=== PATIENT | female | born 1990 | race African-American/Black ===

== ENCOUNTER 2023-10-15 08:02 | Emergency (ER) | payer OTHER ==
[~2023-10-15] VITALS: Ht 167.6 cm; Wt 75.0 kg
[2023-10-15 08:12] VITALS: O2SAT 96
[2023-10-15 10:01] LABS: CLARITY URINE CLOUDY (CLEAR); COLOR URINE YELLOW (YELLOW); GLUCOSE URINE NEGATIVE (NEGATIVE); KETONES URINE 3+ (NEGATIVE); LEUKOCYTE ESTERASE URINE NEGATIVE (NEGATIVE); NITRITE URINE NEGATIVE (NEGATIVE); OCCULT BLOOD URINE NEGATIVE (NEGATIVE); PROTEIN URINE TRACE (NEGATIVE); SPECIFIC GRAVITY URINE 1.025 (1.005-1.030)
[2023-10-15 10:23] LABS: BACTERIA URINE 1+; SQUAMOUS EPITHELIAL CELL URINE 2+ /lpf (RARE/1+); YEAST URINE NONE SEEN
[2023-10-15] MEDS ORDERED: ACETAMINOPHEN 325MG TABLET PO ONE (11:15)
[2023-10-15 12:03] VITALS: BP 121/74; PULSE 98; RESP 18; TEMP 98.3
== END 2023-10-15 12:05 | disposition home or self-care (01) ==
LOC: ER 08:02
DX: O99.891 Other specified diseases and conditions complicating pregnancy (principal); Z3A.17 17 weeks gestation of pregnancy; Z91.018 Allergy to other foods
CPT/HCPCS: 81003; 81025; 99284